=== PATIENT | male | born 1995 | race Two or more races ===

== ENCOUNTER 2021-02-21 08:01 | Emergency (ER) | payer OTHER ==
[~2021-02-21] VITALS: Ht 182.9 cm; Wt 99.8 kg
[2021-02-21] MEDS ORDERED: ADDERALL 5 MG TA5 MG PO (08:07)
[2021-02-21] MEDS ORDERED: PEPCID AC20 MG PO (14:45)
== END 2021-02-21 15:01 | disposition home or self-care (01) ==
LOC: ER 08:01
DX: K29.70 Gastritis, unspecified, without bleeding (principal)